=== PATIENT | male | born 1965 | race Caucasian/White ===

== ENCOUNTER 2019-12-19 10:11 | Outpatient (REF) | payer MEDICAID, SELFPAY ==
--- NOTE | 2019-12-19 13:16 | MHC.AU.P13 ---
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 He has been using a CROS hearing system. He arrives to determine if there has been a change in hearing. Previous Hearing Test Results: Previous results were not available for review at today's visit. Hearing Instrument History- Right Ear: Vacuum Technician: Phonak Model: Dayana Q50-CLARITA Serial Number: [id number] Battery Size: 13 Hearing Instrument History- Left Ear: Vacuum Technician: Phonak Model: CROS H2O Serial Number: [id number] Battery Size: 13 Otoscopy: Right Ear: Unremarkable Left Ear: Unremarkable Tympanometry: Right Ear: Normal Middle Ear System (Type A) Left Ear: Reduced Middle Ear Compliance (Type As) Hearing Evaluation: Right Ear: Description of Hearing: Borderline-normal 250-2000 Hz and 8000 Hz, notch to moderate sensorineural hearing loss around 4000 Hz Left Ear: Description of Hearing: Moderately-severe to profound mixed hearing loss Speech Recognition Threshold (SRT): Method Used: Recorded Lists Stimuli Used: Spondee Words Right Ear: 35 dBHL Left Ear: 100 dBHL Word Discrimination: Method: Recorded Lists Word Lists Used: Lista Bisil?bica (Nigerian) Right Ear: 100% at 65 dBHL Left Ear: Attempted at 100 dBHL, as patient felt anything over that level was uncomfortable. No measurable word discrimination. Recommendations: Recommendations: Audiological re-evaluation in one year. See Hearing Aid Evaluation report for more information. Diagnosis: Primary Diagnosis: H90.A32 Mixed HL, Unilateral, Left Ear, W/Restricted Contralateral Services Performed: Services Performed: Comprehensive Audiological Evaluation (CPT 33717) Tympanometry (CPT 26764) Signature: Provider: Josefa Peraza, JANI-A
--- NOTE | 2019-12-19 13:18 | MHC.AU.P13 ---
Hearing Aid Evaluation- Binaural Date of Visit: 12/19/19 Bio Medical Technician Used: [place]an- By Phone Description of Hearing: Right: Borderline-normal 250-2000 Hz and 8000 Hz, notch to moderate sensorineural hearing loss at 4000 Hz Left: Moderately-severe to profound mixed hearing loss. No measurable word discrimination Summary: Patient has a right-sided Phonak Dayana Q50-CLARITA and a left-sided Phonak CROS H2O. He reports that he has not been using the system lately, as he unsure if it is working. Instruments were inspected. Significant debris in battery compartments and in right mold. Cleaned mold. Cleaned debris out of battery compartments. CROS system was transmitting, but sounded weak. Per Phonak, the original warranty started on 07/30/2013 and has . New hearing instrument options were discussed. Hearing Instrument Selection: Right Ear: Chute Builder: [employer] Model: Dayana Q50-CLARITA Battery Size: 312 Color: Silver Rn Ante Partum: size 1 50-level Left Ear: Chute Builder: [employer] Model: Yaniv CROS-312 Battery Size: 312 Color: Silver Rn Ante Partum: size 1 Recommendations: Recommendations: Fitting will be scheduled when all materials have arrived. 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
== END 2019-12-19 10:12 | disposition home or self-care (01) ==
LOC: HO.SH 10:11
PROVIDERS: Visit Provider Nurse Practitioner Family
DX: H90.A32 Mixed conductive and sensorineural hearing loss, unilateral, left ear with restricted hearing on the contralateral side (principal)
CPT/HCPCS: 92557; 92567; 92591

== ENCOUNTER 2019-12-21 18:36 | Outpatient (REF) | payer MEDICAID, SELFPAY ==
--- NOTE | 2019-12-21 | MR_ITS ---
EXAMINATION: MR BRAIN WITHOUT CONTRAST CLINICAL INFORMATION: Abnormal gait and mobility. COMPARISON: None available. TECHNIQUE: MRI of the brain was obtained using routine sequences without contrast. FINDINGS: No focal restricted diffusion is demonstrated to suggest acute or subacute cerebral ischemia. Chronic encephalomalacia of the inferior left cerebellar hemisphere. Mild hemosiderin staining along the margins of the encephalomalacic cavity. Otherwise, no evidence of acute hemorrhagic products on heme-sensitive imaging. Mild to moderate scattered periventricular and deep white matter T2 FLAIR hyperintensities are nonspecific but most commonly seen with underlying microangiopathy. The ventricles are normal in morphology and size. No abnormal mass effect. No midline shift. Chronic appearing short segment tapering of the corpus callosum isthmus. Normal appearance of the pituitary gland. No abnormalities of the posterior fossa with normal appearance of the brainstem and cerebellum. Normal positioning of the cerebellar tonsils. Normal arterial and venous vascular flow voids are present. Normal, homogeneous marrow signal. No signal abnormalities within the paranasal sinuses or mastoids. MR/MR head/brain wo con IMPRESSION: 1. No acute intracranial abnormalities. 2. Chronic encephalomalacia of the inferior left cerebellar hemisphere. 3. Mild to moderate underlying white matter changes, most commonly seen with microangiopathy.
== END 2019-12-21 18:37 | disposition home or self-care (01) ==
LOC: HO.MRI 18:36
PROVIDERS: Visit Provider Family Medicine
DX: R26.89 Other abnormalities of gait and mobility (principal)
CPT/HCPCS: 70551

== ENCOUNTER 2020-01-23 10:11 | Outpatient (REF) | payer MEDICAID, SELFPAY ==
--- NOTE | 2020-01-23 10:15 | CA_ITS ---
Transthoracic Echocardiogram Patient (Last, First, Middle): Arthur Pace, Gender: Male Date of : 1965 Age: 54 Procedure Date: 01/23/2020 Procedure Type: Transthoracic Echocardiogram Location: OP Height: 175.26 cm Weight: 88. kg BSA: 2.04 m2 Heart Rate: bpm BP: 128 / 80 mmHg Director Media: JORDAN Referring MD: Judy Hooks AIRCRAFT REFUELLER Post Anesthesia Nurse: Hakeem Gann MD Symptoms: R26.89 ABNORMALITY OF GAIT AND MOBILITY Study Quality: Fair ECG Rhythm: Sinus Conclusions: - 1. Normal LV systolic function with mild LVH with grade 1 diastolic dysfunction 2. Normal cardiac valvular Doppler 3. Mildly dilated ascending aorta 4. No pericardial effusion 5. Normal RV systolic pressure Findings Left Ventricle Normal left ventricular size and systolic function. There is mildly increased left ventricular wall thickness. The visually estimated ejection fraction is between 55-60%. Spectral Doppler is indicative of an impaired relaxation filling pattern. E/E prime ratio is <8, consistent with normal filling pressures. Evidence suggests grade I (mild) diastolic dysfunction. Right Ventricle Normal right ventricular cavity size and systolic function. Atria Both atria are normal in size. There is no evidence of interatrial shunt. Aortic Valve Normal aortic valve structure and function. There is no aortic valve stenosis. There is no aortic valve regurgitation. Mitral Valve Normal mitral valve structure and function. There is trace mitral valve regurgitation. There is no mitral valve stenosis. Pulmonic Valve The pulmonic valve is likely normal. Tricuspid Valve Normal tricuspid valve structure. There is trace tricuspid valve regurgitation. The right ventricular systolic pressure is normal. The right ventricular systolic pressure is 12 mmHg. Normal right atrial pressure. There is no evidence of pulmonary hypertension. Great Vessels The pulmonary artery was not well visualized. There is mild dilatation of the ascending aorta measuring 3.90 cm. Venous The inferior vena cava is normal in size and collapses greater than 50% with inspiration. Pericardium/Pleural There is no evidence of pericardial effusion. Prior Study Comparison No prior study available for comparison. Measurements 2D Linear Measurements IVSd: 1.21 0.6-0.9/0.6-1.0 cm LVIDd: 4.00 3.9-5.3/4.2-5.9 cm LVIDd Index: 1.96 2.4-3.2/2.2-3.1 cm/m2 LVIDs: 2.67 2.0-3.6 cm LVPWd: 1.24 0.7-1.1 cm Ao Root: 3.40 2.1-3.5 cm LA Diam: 3.70 2.7-3.8/3.0-4.0 cm LAIDs Index: 1.81 1.5-2.3 cm/m2 LV Mass: 212.51 67-162/88-224 g LV Mass Index: 104.17 43-95/49-115 g/m2 LVOT Diam: 2.10 3.0+(-)1.3 cm 2D Systolic Function EF 4C: 49.00 >55% EF 2C: 60.10 >55% EF BiP: 55.20 >55% Mitral Valve MV Pk E: 0.32 MV PK A: 0.65 MV Decel Time: 301.00 E/A: 0.50 E'Lateral: 6.09 E'Medial: 4.64 E/E' Med: 6.90 E/E' Lat: 5.30 PHT: 88.00 MVA PHT: 2.50 Decel [place]: 1.06 Aortic Valve AoV Pk Aram: 0.86 AoV Mn Aram: 0.56 AoV VTI: 0.20 AoV Pk Grad: 3.00 Aov Mn Grad: 2.00 AILYN Cont.VTI: 2.48 LVOT LVOT Pk Aram: 0.76 LVOT Mn Aram: 0.51 LVOT VTI: 0.14 LVOT Pk Grad: 2.00 LVOT Mn Grad: 1.00 LVOT Diam: 2.10 LVOT Area: 3.46 Diastolic Function MV Pk E: 0.32 MV Pk A: 0.65 E/A: 0.50 E'Medial: 4.64 E/E' Med: 6.90 E' Laterial: 6.09 E/E' Lat: 5.30 Tricuspid Valve TR Pk Aram: 1.52 TR Pk Grad: 9.00 RA Press: 3.00 RVSP: 12.00 Great Vessels Aorta Ao Root-2D: 3.40 2.0-3.7 cm Ao Asc: 3.90 2.1-3.4 cm Pulmonary Valve PV Pk Aram: 0.87 Peak PV Grad: 3.00 Updated in Other Vendor System with Status of Final Hakeem Gann MD electronically signed on 01/25/2020 2:38:29 PM with status of Final
--- NOTE | 2020-01-23 10:15 | ECG_ITS ---
Hook-up date: 2020-01-23 11:37:00 Duration: 24:21:00 Test Indications: other abn of gait and mobility Medications: [id number] QRS complexes 86 Ventricular ectopics which represent <1 % of total QRS comp. 5 Supraventricular ectopics which represent <1 % of total QRS comp. * Paced QRS complexs which represent % of total QRS comp. VENTRICULAR ECTOPY 86 Isolated 0 Bigeminal Cycles 0 Couplets 0 Runs 0 Beats in Runs * Beats LONGEST at * BPM at :: -- * Beats FASTEST at * BPM at :: -- SUPRAVENTRICULAR ECTOPY 5 Isolated 0 Couplets 0 Runs 0 Beats in Runs * Beats LONGEST at * BPM at :: -- * Beats FASTEST at * BPM at :: -- HEART RATES 55 MIN at 05:20:28 2020-01-24 87 AVG 135 MAX at 10:27:56 2020-01-24 LONGEST RR 1.1280 secs at 05:20:30 2020-01-24 S-T LEVELS Channel 1 - 128 mm at 11:37:00 2020-01-23 - 128 mm at 11:37:00 2020-01-23 Channel 2 - 128 mm at 11:37:00 2020-01-23 - 128 mm at 11:37:00 2020-01-23 Channel 3 - 128 mm at 03:05:61 -- - 128 mm at 03:05:61 Basic rhythm Normal sinus rhythm No long pause or profound bradycardia Rare Premature ventricular complexes Patient did not report any symptoms in the diary Referred By: Judy Hooks Overread By: ZACKERY COLEMAN MD
== END 2020-01-23 10:12 | disposition home or self-care (01) ==
LOC: HO.HAP 10:11
PROVIDERS: PCP Nurse Practitioner Family; Referring Provider Nurse Practitioner Family; Visit Provider Nurse Practitioner Family
DX: R26.89 Other abnormalities of gait and mobility (principal)
CPT/HCPCS: 93225; 93226; 93306

== ENCOUNTER 2020-01-25 09:01 | Outpatient (REF) | payer MEDICAID, SELFPAY ==
--- NOTE | 2020-01-25 13:23 | MHC.AU.P13 ---
Hearing Instrument Fitting- Adult- Binaural Date of Visit: 01/25/20 Hearing Instruments Dispensed: Right Ear: Mechanical Technologist: Raimundo Model: YANIV 1600 CLARITA 312 Serial Number: [id number] Warranty: 03/25/2023 Battery Size: 312 Color: CHEN Doctor Of Nurse Anesthesia Practice: size 1 50-level Type of Dome: 7mm Open Comfort [place] Type of Wax Guard: HearClear Left Ear: Mechanical Technologist: Raimundo Model: Yaniv CROS-312 Serial Number: [id number] Warranty: 03/25/2023 Battery Size: 312 Color: CHEN Doctor Of Nurse Anesthesia Practice: size 1 Type of Dome: 7mm Open Comfort [place] Type of Wax Guard: N/A Summary of Fitting: Feedback canceler was run. Experience level set to 3. Verifit performed and levels adjusted to better reach targets. Patient was pleased with the sound of the instruments and did not feel any additional adjustments were needed. He noted how he could hear sounds such as the papers rustling, which he was previously unable to hear. Hearing aid care and maintenance were discussed. Attempted to pair to the patient's phone. The phone was able to find the hearing aids and say they were paired; however, all sound continued to play through the speakers of the phone. His particular phone ([employer] Star) was not on Raimundo's list of compatible models. Next time he is at our clinic for hearing aid check or audiological evaluation, this list can be checked to see if his model has been added. Recommendations: Hearing aid follow-up as needed. 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
--- NOTE | 2020-01-28 09:49 | MHC.AU.MED ---
Medical Clearance for Hearing Instrumentation Date: 01/28/20 Patient Name: Arthur Pace Date of : 1965 Dear Primary Care Provider, We have seen your patient on 12/19/2019 and have determined that they are a candidate for amplification (See accompanying report). Specifically, they would benefit from: Hearing aid use in the right ear Hearing aid use in the left ear Hearing aid use in both ears There is a statute that addresses Medical Evaluation Requirements prior to fitting a patient with a hearing aid. According to [place] statute 265 CMR:6.03(1), (a) General. Except as provided in 265 CMR 6.03(1)(b), a orthopedics teacher shall not sell a hearing aid unless the prospective user has presented to the orthopedics teacher a written statement signed by a licensed physician that states that the patient's hearing loss has been medically evaluated and the patient may be considered a candidate for a hearing aid. The medical evaluation must have taken place within the preceding six months. Please note: Due to the [place] Statute referenced above, we cannot accept a signature other than that of a licensed physician. PUPPET ENGINEER and PA signatures cannot be accepted. I am in agreement with the above recommendation. There is no medical contraindication for hearing instrumentation. Physician Signature Date Physician Name (Printed)
== END 2020-01-25 09:02 | disposition home or self-care (01) ==
LOC: HO.SH 09:01
PROVIDERS: PCP Nurse Practitioner Family; Referring Provider Nurse Practitioner Family; Visit Provider Nurse Practitioner Family
DX: Z46.1 Encounter for fitting and adjustment of hearing aid (principal); H90.A32 Mixed conductive and sensorineural hearing loss, unilateral, left ear with restricted hearing on the contralateral side
CPT/HCPCS: V5011; V5020; V5221; V5240; V5266